=== PATIENT | female | born 1955 | race Caucasian/White ===

== ENCOUNTER → 2017-03-12 | Outpatient (CLI) | payer SELFPAY ==
[~2017-03-12] MED LIST: Biotin; HYDR-3138 PO; HYDR-3144 PO; IBUP400T PO; Primrose Oil; TRAM50TA2 PO; UNDE; [UNRECOGNIZED DRUG - OTHER]; potassium
[2017-03-12 16:42] LABS: ASPARTATE AMINO TRANSFERASE 24 U/L (15-37); BLOOD UREA NITROGEN 22 mg/dL (7-18)
== END | disposition home or self-care (01) ==
LOC: LAB 16:07
PROVIDERS: ATTEND Internal Medicine
DX: C50.812 Malignant neoplasm of overlapping sites of left female breast (principal); C79.51 Secondary malignant neoplasm of bone; D70.9 Neutropenia, unspecified; D69.6 Thrombocytopenia, unspecified
CPT/HCPCS: 36415; 80053; 85025; 86300

== ENCOUNTER 2017-04-25 12:50 | Emergency (ER) | payer OTHER ==
[~2017-04-25] VITALS: Ht 165.1 cm; Wt 50.7 kg
[2017-04-25 15:50] VITALS: BP 129/81
== END 2017-04-25 15:51 | disposition home or self-care (01) ==
LOC: ED 15:50
DX: S32.019A Unspecified fracture of first lumbar vertebra, initial encounter for closed fracture (principal); S32.059A Unspecified fracture of fifth lumbar vertebra, initial encounter for closed fracture; X58.XXXA Exposure to other specified factors, initial encounter; Y93.89 Activity, other specified; Y92.89 Other specified places as the place of occurrence of the external cause; Y99.8 Other external cause status
CPT/HCPCS: 72131; 99284

== ENCOUNTER 2017-06-11 12:24 | Day surgery (SDC) | payer MEDICARE ==
[~2017-06-11] VITALS: Ht 165.1 cm; Wt 46.5 kg
[~2017-06-11 12:24] MED LIST changes: -HYDR-3138 PO; -HYDR-3144 PO; +HYDR-3237 PO; +HYDR-3245 PO; +IBUP-1221 PO; -IBUP400T PO
[2017-06-11 13:18] VITALS: BP 162/94
[2017-06-11] MEDS ORDERED: OMEG1CAP34 PO (13:18)
[2017-06-11] MEDS ORDERED: LINO1LIQ PO (13:18)
[2017-06-11] MEDS ORDERED: NABU500T PO (13:18)
[2017-06-11] MEDS ORDERED: SELE200T10 PO (13:18)
[2017-06-11] MEDS ORDERED: CALC-192 PO (13:18)
[2017-06-11] MEDS ORDERED: SODIUM CHLORIDE 0.9% 1,000 ML IV SCH (13:23)
[2017-06-11] MEDS ORDERED: GADOBUTROL 7.5 MMOL/7.5 ML PFS ONE (14:20)
[2017-06-11 15:24] LABS: CYTOLOGY BODY FLUID RECD INTO PATHOLOGY; CYTOLOGY BODY FLUID SOURCE CEREBROSPINAL FLUID
[2017-06-11 15:41] LABS: GLUCOSE, CSF 53 mg/dL (40-80)
== END 2017-06-11 18:07 ==
LOC: OUT 12:24 → EDSTATUS 14:15 → OUT 18:07
PROVIDERS: ATTEND Internal Medicine
DX: C50.812 Malignant neoplasm of overlapping sites of left female breast (principal); Z98.890 Other specified postprocedural states
CPT/HCPCS: 62270; 70553; 82945; 84157; 88108; 89051; A9585; J7030

== ENCOUNTER → 2017-06-12 | Outpatient (CLI) | payer MEDICARE ==
[~2017-06-12] MED LIST changes: +CALC-192 PO; +LINO1LIQ PO; +NABU500T PO; +OMEG1CAP34 PO; +SELE200T10 PO
== END | disposition home or self-care (01) ==
LOC: PETCFH 11:27
PROVIDERS: ATTEND Internal Medicine
DX: C79.51 Secondary malignant neoplasm of bone (principal); C50.812 Malignant neoplasm of overlapping sites of left female breast
CPT/HCPCS: 78306; A9503

== ENCOUNTER → 2017-06-12 | Outpatient (CLI) | payer MEDICAID, MEDICARE ==
[~2017-06-12] MED LIST changes: +OMNIPAQUE 350 MG/ML, 100ML BOTTLE ONE
== END | disposition home or self-care (01) ==
LOC: PETCFH 11:22
PROVIDERS: ATTEND Internal Medicine
DX: C79.51 Secondary malignant neoplasm of bone (principal); M48.56XA Collapsed vertebra, not elsewhere classified, lumbar region, initial encounter for fracture; R91.8 Other nonspecific abnormal finding of lung field; K76.89 Other specified diseases of liver; C50.812 Malignant neoplasm of overlapping sites of left female breast
CPT/HCPCS: 71260; 74177; 82565; Q9967

== ENCOUNTER → 2017-06-28 | Outpatient (CLI) | payer MEDICARE ==
[~2017-06-28] MED LIST changes: +GADOBUTROL 7.5 MMOL/7.5 ML PFS ONE; -OMNIPAQUE 350 MG/ML, 100ML BOTTLE ONE
== END | disposition home or self-care (01) ==
LOC: CFH 14:35
PROVIDERS: ATTEND Internal Medicine
DX: S32.019A Unspecified fracture of first lumbar vertebra, initial encounter for closed fracture (principal); S32.059A Unspecified fracture of fifth lumbar vertebra, initial encounter for closed fracture; C79.51 Secondary malignant neoplasm of bone; C50.812 Malignant neoplasm of overlapping sites of left female breast; M48.06 Spinal stenosis, lumbar region; X58.XXXA Exposure to other specified factors, initial encounter; Y93.89 Activity, other specified; Y92.89 Other specified places as the place of occurrence of the external cause; Y99.8 Other external cause status
CPT/HCPCS: 72158; 82565; A9585

== ENCOUNTER → 2017-07-09 | Outpatient (CLI) | payer MEDICARE ==
[~2017-07-09] MED LIST changes: -GADOBUTROL 7.5 MMOL/7.5 ML PFS ONE
== END | disposition home or self-care (01) ==
LOC: EDSTATUS 14:30 → ROC 15:02
PROVIDERS: ATTEND Radiology Radiation Oncology
DX: C50.912 Malignant neoplasm of unspecified site of left female breast (principal); C79.51 Secondary malignant neoplasm of bone
CPT/HCPCS: 99213; G0463

== ENCOUNTER 2017-08-02 10:30 | Day surgery (SDC) | payer MEDICARE ==
[~2017-08-02] VITALS: Ht 165.1 cm; Wt 45.2 kg
[2017-08-02 11:06] VITALS: BP 151/69
[2017-08-02] MEDS ORDERED: SODIUM CHLORIDE 0.9% 1,000 ML IV SCH (11:10)
[2017-08-02] MEDS ORDERED: CEFAZOLIN PMX 1GM/50ML 50 ML ONE (11:15)
[2017-08-02] MEDS ORDERED: CEFAZOLIN PMX 1GM/50ML 50 ML IV ONE (11:30)
[2017-08-02] MEDS ORDERED: LIDOCAINE 2%, 20ML ONE ×2 (12:15→13:05)
[2017-08-02] MEDS ORDERED: FENTANYL PF 100 MCG/2ML ONE (12:19)
[2017-08-02] MEDS ORDERED: FLUMAZENIL 0.1 MG/1 ML, 5ML ONE (12:19)
[2017-08-02] MEDS ORDERED: MIDAZOLAM 1 MG/ML, 5ML ONE (12:19)
[2017-08-02] MEDS ORDERED: MEPERIDINE/PF 50 MG/ML ONE (12:20)
[2017-08-02] MEDS ORDERED: PROMETHAZINE 25 MG/ML, 1ML ONE (12:24)
== END 2017-08-02 18:20 | disposition home or self-care (01) ==
LOC: OUT 10:30 → EDSTATUS 12:00 → OUT 18:20
PROVIDERS: ATTEND Internal Medicine
DX: C50.919 Malignant neoplasm of unspecified site of unspecified female breast (principal); C79.51 Secondary malignant neoplasm of bone; Z85.3 Personal history of malignant neoplasm of breast; Z98.890 Other specified postprocedural states
CPT/HCPCS: 20982; 22514; 22515; 99156; 99157; C9359; J0690; J2175; J2250; J2550; J3010; J3490; J7030; C2613

== ENCOUNTER → 2017-08-09 | Outpatient (CLI) | payer MEDICARE | END | disposition home or self-care (01) | LOC: ROC 14:42 | PROVIDERS: ATTEND Radiology Radiation Oncology | DX: C50.912 Malignant neoplasm of unspecified site of left female breast (principal); Z92.3 Personal history of irradiation | CPT/HCPCS: 99212; G0463 ==